=== PATIENT | female | born 1990 | race Caucasian/White ===

== ENCOUNTER 2020-01-30 19:20 | Emergency (ER) | payer MEDICAID ==
[~2020-01-30] VITALS: Ht 154.9 cm; Wt 60.3 kg
[2020-01-30 19:56] LABS: BASOPHILS % (AUTO) 0.2 % (0.0-2.0); EOSINOPHILS % (AUTO) 1.6 % (0.0-6.0); HEMATOCRIT 38 % (33-45); HEMOGLOBIN 12.7 g/dL (11.5-14.8); LYMPHOCYTES # (AUTO) 2.4 /CMM (0.8-4.8); LYMPHOCYTES % (AUTO) 41.6 % (20.0-44.0); MEAN CORPUSCULAR HGB CONC 33 g/dl (31.0-36.0); MEAN CORPUSCULAR VOLUME 82 fL (82-100); MONOCYTES # (AUTO) 0.7 /CMM (0.1-1.30); MONOCYTES % (AUTO) 11.6 % (2.0-12.0); NEUTROPHILS # (AUTO) 2.6 /CMM (1.8-8.9); PLATELET COUNT (AUTO) 298 /CMM (150-450); RED BLOOD CELL COUNT(AUTO) 4.68 MIL/uL (4.0-5.2); WHITE BLOOD COUNT (AUTO) 5.8 K/uL (4.3-11.0)
[2020-01-30] MEDS ORDERED: IV NS 0.9% 1,000 ML IV ONE (20:00)
--- NOTE | 2020-01-30 20:01 | NUR ---
PT PRESENTED TO THE ER WITH A C/O BULGING EYES, BURNING ON SOLES OF HER FEET, FEELS LIKE HER NECK IS GETTING SWOLLEN/BIGGER, AND PALPITATIONS. PT IS [place] SPEAKING ONLY. PT IS ON THE MONITOR AND CONTINUOUS PULSE OX. 20G IV WAS STARTED IN [facility] AND BLOOD WAS DRAWN. BEEF SPLITTER ARRIVED AND COLLECTED THE SAMPLES.
[2020-01-30 20:08] LABS: CARBON DIOXIDE 26 mmol/L (21-32); CHLORIDE 102 mmol/L (98-107); CREATININE 0.4 mg/dL (0.6-1.3); GLUCOSE 93 mg/dL (74-106); POTASSIUM 4.1 mmol/L (3.5-5.1); SODIUM SERUM 136 mmol/L (136-145); UREA NITROGEN, BLOOD 15 mg/dL (7-18)
[2020-01-30 20:12] LABS: ALANINE AMINOTRANSFERASE 28 U/L (12-78); ALBUMIN 3.7 g/dL (3.4-5.0); ALKALINE PHOSPHATASE 244 U/L (46-116); ASPARTATE AMINOTRANSFERASE 22 U/L (15-37); BILIRUBIN,TOTAL 0.3 mg/dL (0.2-1.0); TOTAL PROTEIN, SERUM 8.8 g/dL (6.4-8.2)
[2020-01-30 20:24] LABS: THYROID STIMULATING HORMONE < 0.007 uIU/mL (0.358-3.74)
--- NOTE | 2020-01-30 21:44 | NUR ---
IV removed. Catheter intact and site benign. Pressure and 4x4 applied to site. No bleeding noted. Patient discharged to home in stable condition. Written and verbal after care instructions given. Patient verbalizes understanding of instruction. All ACI was translated by katelyn Ward. Pt ambulated out with a steady gait.
--- NOTE | 2020-01-30 21:48 | NUR ---
Called pt re: the US imaging disk was not picked up. Pt is returning to the ER for the disk.
[2020-01-30 21:52] VITALS: BP 160/71
== END 2020-01-30 21:55 | disposition home or self-care (01) ==
LOC: ER 19:24
DX: E05.90 Thyrotoxicosis, unspecified without thyrotoxic crisis or storm (principal); R19.7 Diarrhea, unspecified
CPT/HCPCS: 36415; 76536; 80053; 84439; 84443; 84481; 85025; 93005; 96360; 99285; J7030